=== PATIENT | female | born 1995 | race Caucasian/White ===

== ENCOUNTER 2023-10-27 11:09 | Emergency (ER) | payer OTHER ==
[2023-10-27 11:27] VITALS: O2SAT 100
--- NOTE | 2023-10-27 13:04 | ED Physician Documentation ---
History of Present Illness - Stated complaint Stated Complaint: DIZZINESS,BRYAN - Chief complaint Chief Complaint: Trauma Hd/Nk - History obtained from History obtained from: Patient - Additonal information Additional information: 28-year-old female presents from the [facility] base for head injury. She was playing soccer yesterday, collided with some other people and got hit in the head. She states she did not lose consciousness and was immediately able to get up and run but then suddenly had headache and dizziness. The dizziness persisted today and was accompanied by nausea but no vomiting. She has not had any confusion or alteration of mental status. She is not on any anticoagulation. She denies any other injuries. She was sent here for evaluation Review of Systems Constitutional: reports: Reviewed and negative Eyes: reports: Reviewed and negative Ears: reports: Reviewed and negative Nose: reports: Reviewed and negative Throat: reports: Reviewed and negative Cardiac: reports: Reviewed and negative Respiratory: reports: Reviewed and negative GI: reports: Reviewed and negative : reports: Reviewed and negative Skin: reports: Reviewed and negative Musculoskeletal: reports: Reviewed and negative. denies: Neck pain Neurologic: reports: Headache, Head injury. denies: LOC PD PAST MEDICAL HISTORY - Past Medical History Past Medical History: No - Past Surgical History Past Surgical History: No - Present Medications Home Medications: Ambulatory Orders Medication Instructions Recorded Confirmed valACYclovir [Valtrex] 500 mg PO DAILY 10/27/23 10/27/23 - Allergies Allergies/Adverse Reactions: Allergies Allergy/AdvReac Type Severity Reaction Status Date / Time No Known Drug Allergies Allergy Verified 10/27/23 11:23 - Social History Does the pt smoke?: No Smoking Status: Never smoker Does the pt drink ETOH?: Yes Does the pt have substance abuse?: No - Immunizations Immunizations are current?: Yes PD ED PE NORMAL - Vitals Vital signs reviewed: Yes - General General: Alert and oriented X 3, No acute distress, Well developed/nourished - HEENT HEENT: Atraumatic, PERRL, EOMI, Ears normal, Moist mucous membranes, Pharynx benign - Neck Neck: Supple, no meningeal sign, C-Spine cleared by NEXUS criteria - Cardiac Cardiac: RRR, No murmur - Respiratory Respiratory: No respiratory distress, Clear bilaterally - Derm Derm: Normal color, Warm and dry - Neuro Neuro: Alert and oriented X 3, No motor deficit, No sensory deficit, Normal speech Eye Opening: Spontaneous Motor: Obeys Commands Verbal: Oriented GCS Score: 15 Results - Vitals Vitals: Vital Signs - 24 hr 10/27/23 10/27/23 11:20 13:45 Temperature 36.3 C L Heart Rate 68 64 Respiratory 16 18 Rate Blood Pressure 123/75 118/64 O2 Saturation 100 100 Oxygen O2 Source Room air PD Medical Decision Making - ED course Complexity details: reviewed results, re-evaluated patient, considered differential, d/w patient ED course: . 28-year-old female presented after head injury she sustained yesterday. Her workup today is reassuring, physical exam is unremarkable the patient is reporting some ataxia, she appears well on exam. I discussed glen that I suspect she likely has a concussion and we reviewed supportive measures and act ivity restrictions however patient requesting CT scan for her job therefore CT was obtained which was reviewed by me and is negative. Advised patient to allow for brain rest until symptoms resolve, she can use Tylenol or ibuprofen as needed, and use precautions to be safe while she is dizzy. Return precautions reviewed if any new or worsening symptoms. Departure - Departure Disposition: 01 Home, Self Care Clinical Impression: Concussion Qualifiers: Encounter type: initial encounter Loss of consciousness presence/duration: without LOC Qualified Code(s): S06.0X0A - Concussion without loss of consciousness, initial encounter Condition: Good Instructions: ED Concussion Comments: As we discussed, you will need to avoid any physical activity or strenuous brain activity such as tests, studying, reading, until your symptoms completely resolved. This means effectively that you will need to allow your brain to rest until the headache and dizziness go away. This can be for a few days or it can sometimes last longer. If symptoms go beyond a week, please follow-up with your primary doctor. It is extremely important that you avoid any activity in which you could sustain another head injury Until symptoms completely resolve. Forms: PCP List Discharge Date/Time: 10/27/23 13:46
--- NOTE | 2023-10-27 13:27 | CT Report ---
PROCEDURE: Head WO INDICATIONS: head injury TECHNIQUE: Noncontrast 4.5 mm thick angled axial sections acquired from the foramen magnum to the vertex. For r adiation dose reduction, the following was used: automated exposure control, adjustment of mA and/or kV according to patient size. COMPARISON: None. FINDINGS: Image quality: Excellent. CSF spaces: Basal cisterns are patent. No extra-axial fluid collections. Ventricles are normal in size and shape. Brain: No midline shift. No intracranial masses or hemorrhage. Waters-white matter interface is norm al. Skull and face: Calvarium and visualized facial bones are intact, without suspicious lesions. Sinuses: Visualized sinuses and mastoids are clear. IMPRESSION: No acute intracranial pathology. No acute calvarial fractures. No mass or mass effect. Reviewed by: True Simmons MD on 10/27/2023 1:26 PM PDT Approved by: True Simmons MD on 10/27/2023 1:26 PM PDT Station ID: [id number]
[2023-10-27 13:51] VITALS: BP 118/64
== END 2023-10-27 13:46 | disposition home or self-care (01) ==
LOC: ED 11:09
DX: S06.0X0A Concussion without loss of consciousness, initial encounter (principal); W51.XXXA Accidental striking against or bumped into by another person, initial encounter; Y93.66 Activity, soccer
CPT/HCPCS: 99283; 99284